=== PATIENT | male | born 2000 | race Caucasian/White ===

== ENCOUNTER 2018-08-08 07:42 | Emergency (ER) | payer SELFPAY ==
[~2018-08-08] VITALS: Ht 154.9 cm; Wt 60.0 kg
[~2018-08-08 07:42] MED LIST: IBUP800T48 PO
[2018-08-08 07:50] VITALS: BP 113/80; PULSE 90; RESP 18; Ht 154.9 cm; Wt 60.0 kg
[2018-08-08] MEDS ORDERED: ONDANSETRON (ODT) 4 MG TAB ODT STA (08:07)
[2018-08-08] MEDS ORDERED: ACET325T33 PO (08:56)
[2018-08-08] MEDS ORDERED: ONDA4TAB14 PO (08:56)
--- NOTE | 2018-08-08 09:09 | ERD ---
ER Documentation Chief Complaint Chief Complaint vomiting since last night HPI 18-year-old male presenting with vomiting since last night. Patient denies any fevers. He states he has some mild epigastric pain but denies any chest pain or shortness of breath. He took Pepto-Bismol but no other medications. He denies any changes in urination or bowel movement. His last bowel movement was a few hours ago. Denies other medical problems. NKDA. Surgical history appendectomy. Social history smokes marijuana occasionally. ROS All systems reviewed and are negative except as per history of present illness. Medications Home Meds Active Scripts Acetaminophen* (Tylenol*) 325 Mg Tablet, 2 TAB PO Q6 PRN for PAIN AND OR ELEVATED TEMP, #20 TAB Prov:MERLIN AZAR PA-C 08/08/18 Ondansetron (Ondansetron Odt) 4 Mg Tab.rapdis, 4 MG PO Q6H PRN for NAUSEA AND/OR VOMITING, #10 TAB Prov:MERLIN AZAR PA-C 08/08/18 Ibuprofen* (Motrin*) 800 Mg Tab, 800 MG PO Q6H PRN for PAIN AND OR ELEVATED TEMP, #30 TAB Prov:NO PEREZ MD 03/29/15 Allergies Allergies: Coded Allergies: No Known Allergy (Verified , 03/29/15) PMhx/Soc Medical and Surgical Hx: pt denies Medical Hx History of Surgery: Yes (APPENDECTOMY) Anesthesia Reaction: No Hx Neurological Disorder: No Hx Respiratory Disorders: No Hx Cardiac Disorders: No Hx Psychiatric Problems: No Hx Miscellaneous Medical Probl: No Hx Alcohol Use: Yes Hx Substance Use: Yes Hx Tobacco Use: No FmHx Family History: No diabetes, No coronary disease, No other Physical Exam Vitals Vital Signs Date Temp Pulse Resp B/P (MAP) Pulse Ox O2 O2 Flow FiO2 Time Delivery Rate 08/08/18 98.1 90 18 113/80 99 07:50 (91) Physical Exam GENERAL: The patient is well-appearing, well-nourished, in no acute distress HEENT: Atraumatic. Conjunctivae are pink. Pupils equal, round, and reactive to light. There is no scleral icterus. Tympanic membranes clear bilaterally. NECK: C-spine is soft and supple. There is no meningismus. There is no cervical lymphadenopathy. CHEST: Clear to auscultation bilaterally. There are no rales, wheezes or rhonchi. HEART: Regular rate and rhythm. No murmurs, clicks, rubs or gallops. ABDOMEN:Soft, nontender and nondistended. Good bowel sounds. No rebound or guarding. No gross peritonitis. No gross organomegaly or masses. Results 24 hrs Current Medications Medications Dose Sig/Chepe Start Time Status Last (Trade) Ordered Route PRN Stop Time Admin Dose Reason Admin Ondansetron 4 mg ONCE STAT 08/08/18 DC 08/08/18 HCl (Zofran ODT 08:07 08/08/18 08:09 Odt) 08:08 Procedures/MDM Course: Zofran and p.o. challenge given ED. Patient passed p.o. challenge. MDM: 18-year-old male presenting with vomiting. I have low suspicion for acute abdominal emergency. I have low suspicion for dehydration. Patient tolerated p.o.'s in the ED. Patient is told symptoms change or worsen to return immediately to the ER. I do not feel that patient requires additional blood work or imaging. All questions answered at discharge Departure Diagnosis: Primary Impression: Vomiting Condition: Stable Patient Instructions: Vomiting (4Y-Adult) Referrals: COMM[facility]ITY [facility]IN[facility] YOU HAVE RECEIVED A MEDICAL SCREENING EXAM AND THE RESULTS INDICATE THAT YOU DO NOT HAVE A CONDITION THAT REQUIRES URGENT TREATMENT IN THE EMERGENCY DEPARTMENT. FURTHER EVALUATION AND TREATMENT OF YOUR CONDITION CAN WAIT UNTIL YOU ARE SEEN IN YOUR DOCTORS OFFICE WITHIN THE NEXT 1-2 DAYS. IT IS YOUR RESPONSIBILITY TO MAKE AN APPOINTMENT FOR FOLOW-UP CARE. IF YOU HAVE A PRIMARY DOCTOR --you should call your primary doctor and schedule an appointment IF YOU DO NOT HAVE A PRIMARY DOCTOR YOU CAN CALL OUR PHYSICIAN REFERRAL HOTLINE AT IF YOU CAN NOT AFFORD TO SEE A PHYSICIAN YOU CAN CHOSE FROM THE FOLLOWING [facility] [address] [facility] [address] [facility] [address] [facility] [address] [facility] [address] [facility]. [facility] [address] Additional Instructions: FOLLOW UP WITH YOUR PRIMARY CARE PHYSICIAN TOMORROW.Return to this facility if you are not improving as expected. MERLIN AZAR PA-C Aug 08, 2018 09:09
== END 2018-08-08 09:03 | disposition home or self-care (01) ==
LOC: FTE 07:42
DX: R11.10 Vomiting, unspecified (principal)
CPT/HCPCS: 99283